=== PATIENT | male | born 1980 | race Caucasian/White ===

== ENCOUNTER 2017-03-21 18:14 | Emergency (ER) | payer OTHER ==
[~2017-03-21] VITALS: Ht 177.8 cm; Wt 88.5 kg
[2017-03-21 18:17] VITALS: BP 123/69
[2017-03-21] MEDS ORDERED: ACETAMINOPHEN ES 500 MG TABLET ONE (18:30)
[2017-03-21] MEDS ORDERED: ACETAMINOPHEN ES 500 MG TABLET PO ONE (18:30)
== END 2017-03-21 19:13 | disposition home or self-care (01) ==
LOC: ER 18:18
DX: S92.502A Displaced unspecified fracture of left lesser toe(s), initial encounter for closed fracture (principal); W22.8XXA Striking against or struck by other objects, initial encounter; Y93.89 Activity, other specified; Y92.89 Other specified places as the place of occurrence of the external cause; Y99.8 Other external cause status
CPT/HCPCS: 73660; 99284; A4606; Z7610